=== PATIENT | female | born 1935 | race Caucasian/White ===

== ENCOUNTER → 2016-09-14 | Outpatient (CLI) | payer OTHER ==
[~2016-09-14] MED LIST: APRACLONIDINE 1% 0.1 ML OPH ONE; OPHTHALMIC IRRIG SOLUTION 120 ML ONE; PHENYLephrine 10% 5 ML OPH ONE; PROPARACAINE 0.5% 15 ML OPH ONE; TROPICAMIDE 1% 3 ML OPH ONE
== END | disposition home or self-care (01) ==
LOC: RAD 09:58
PROVIDERS: ATTEND Ophthalmology
DX: H26.9 Unspecified cataract (principal)
CPT/HCPCS: 66821; Z7610

== ENCOUNTER 2016-09-22 08:52 | Day surgery (SDC) | payer OTHER ==
[~2016-09-22] VITALS: Ht 157.5 cm; Wt 66.7 kg
[2016-09-22 09:52] VITALS: Ht 157.5 cm; Wt 66.7 kg
[2016-09-22] MEDS ORDERED: SITA100T8 PO (10:06)
[2016-09-22] MEDS ORDERED: AMLODIPINE (10:06)
[2016-09-22] MEDS ORDERED: LOSA25TA5 PO (10:06)
[2016-09-22] MEDS ORDERED: AMIT25TA9 PO (10:06)
[2016-09-22] MEDS ORDERED: OMEP20CA16 PO (10:06)
[2016-09-22] MEDS ORDERED: PENT400T2 PO (10:06)
[2016-09-22] MEDS ORDERED: PRAV10TA43 PO (10:06)
[2016-09-22] MEDS ORDERED: LEVO25TA53 PO (10:06)
[2016-09-22] MEDS ORDERED: FURO20TA3 PO (10:06)
[2016-09-22] MEDS ORDERED: PROPOFOL 20 ML ONE (10:18)
[2016-09-22 11:25] VITALS: BP 150/69; PULSE 81; RESP 18
--- NOTE | 2016-09-22 11:43 | GILP ---
DATE OF PROCEDURE: NAME OF PROCEDURE: Esophagogastroduodenoscopy and biopsy. SURGEON: Patricia Clarke MD PREOPERATIVE DIAGNOSES: 1. Abdominal pain. 2. Rectal bleeding. POSTOPERATIVE DIAGNOSES 1. Gastritis with erosions. 2. Gastric polyp on the antrum and biopsies were taken for histopathology. 3. Rectal prolapse and the colonoscopy was canceled. INDICATION FOR THE PROCEDURE: Ms. Jessica Rush is an 80-year-old female patient who had upper abdo attila pain, not responding to therapy. The patient also had history of rectal bleeding. The patien t was scheduled for endoscopy and colonoscopy for further evaluation. The procedures and possible complications are well explained to the patient, she understood and cons ented to the procedure. DESCRIPTION OF PROCEDURE: Under the influence of anesthesia, the gastroscope was carefully introduc ed into the esophagus and under direct vision, it was advanced to the stomach and through the pyloru s into the duodenal bulb and descending duodenum. FINDINGS: ESOPHAGUS: The mucosa was normal. STOMACH: The patient had gastritis with erosions. She also had a gastric polyp on the antrum and b iopsies were taken for histopathology. DUODENUM: Normal. FINDINGS: The patient was noted to have a rectal prolapse with bleeding, so the colonoscopy was can celed. She tolerated the procedure very well and there was no complication from the procedure. At the end of the procedures, she was awake with stable vital signs and she was discharged home to the care of her family. IMPRESSION: 1. Gastritis with erosions. 2. Gastric polyp on the antrum and biopsies were taken for histopathology. 3. Rectal prolapse. The colonoscopy was canceled. PLAN: 1. Omeprazole 40 mg p.o. q.a.m. 2. Await histopathology reports. 3. The patient needs evaluation by a colorectal surgeon for rectal prolapse. Dictated By: PATRICIA CROW/CHEY Conf#: [id number] DID#: [id number]
--- NOTE | 2016-09-22 20:51 | RADRPT ---
Vent Rate: 104 bpm RR Interval: 0 msec NM Interval: 280 msec QRS Duration: 120 msec QT Interval: 328 msec QTC Interval: 431 msec P-R-T [place]: 0 - -65 - 99 degrees Sinus tachycardia with 1st degree AV block Left axis deviation Left ventricular hypertrophy with QRS widening and repolarization abnormality Possible Lateral infarct , age undetermined Abnormal ECG Electronically Signed By: Bulmaro Alva [id number]
== END 2016-09-22 13:13 | disposition home or self-care (01) ==
LOC: GIL 08:52
PROVIDERS: ATTEND Internal Medicine Gastroenterology
DX: K29.30 Chronic superficial gastritis without bleeding (principal); K31.7 Polyp of stomach and duodenum; K62.3 Rectal prolapse; E11.9 Type 2 diabetes mellitus without complications; I10 Essential (primary) hypertension; E78.5 Hyperlipidemia, unspecified; E03.9 Hypothyroidism, unspecified; I50.9 Heart failure, unspecified
CPT/HCPCS: 43239; 82962; 88305; 88312; 93005; Z7610

== ENCOUNTER 2017-05-30 08:11 | Day surgery (SDC) | payer OTHER ==
[~2017-05-30] VITALS: Ht 157.5 cm; Wt 66.1 kg
[~2017-05-30 08:11] MED LIST changes: +AMIT25TA9 PO; +AMLODIPINE; -APRACLONIDINE 1% 0.1 ML OPH ONE; +FURO20TA3 PO; +LEVO25TA53 PO; +LOSA25TA5 PO; +OMEP20CA16 PO; -OPHTHALMIC IRRIG SOLUTION 120 ML ONE; +PENT400T2 PO; -PHENYLephrine 10% 5 ML OPH ONE; +PRAV10TA43 PO; -PROPARACAINE 0.5% 15 ML OPH ONE; +SITA100T8 PO; -TROPICAMIDE 1% 3 ML OPH ONE
[2017-05-30 08:53] VITALS: Ht 157.5 cm; Wt 66.1 kg
[2017-05-30 09:35] VITALS: BP 172/73; PULSE 73; RESP 18
[2017-05-30] MEDS ORDERED: PROPOFOL 20 ML ONE (10:02)
[2017-05-30] MEDS ORDERED: LIDOCAINE 100 MG SYRINGE ONE (10:02)
--- NOTE | 2017-05-30 10:35 | OPPN ---
Date/Time of Note Date/Time of Note DATE: 05/30/17 TIME: 10:34 Operative Report Preoperative Diagnosis Positive occult blood in stool Postoperative Diagnosis 2 small colon polyps were removed Internal hemorrhoids Operation/Procedure Performed Colonoscopy and biopsy Surgeon see signature line pediatric dental assistant None Anesthesia: MAC Estimated blood loss: none Transfusion Required none Specimen Colon polyps Grafts/Implants none Complications none JOSE A DEL VALLE MD May 30, 2017 10:35
--- NOTE | 2017-05-30 10:35 | OPPN ---
Date/Time of Note Date/Time of Note DATE: 05/30/17 TIME: 10:34 Operative Report Preoperative Diagnosis Positive occult blood in stool Postoperative Diagnosis 2 small colon polyps were removed Internal hemorrhoids Operation/Procedure Performed Colonoscopy and biopsy Surgeon see signature line server assistant None Anesthesia: MAC Estimated blood loss: none Transfusion Required none Specimen Colon polyps Grafts/Implants none Complications none JOSE A DEL VALLE MD May 30, 2017 10:35
--- NOTE | 2017-05-30 10:35 | OPPN ---
Date/Time of Note Date/Time of Note DATE: 05/30/17 TIME: 10:34 Operative Report Preoperative Diagnosis Positive occult blood in stool Postoperative Diagnosis 2 small colon polyps were removed Internal hemorrhoids Operation/Procedure Performed Colonoscopy and biopsy Surgeon see signature line product development assistant None Anesthesia: MAC Estimated blood loss: none Transfusion Required none Specimen Colon polyps Grafts/Implants none Complications none JOSE A DEL VALLE MD May 30, 2017 10:35
[2017-05-30 10:53] VITALS: BP 132/64; RESP 20
--- NOTE | 2017-05-30 11:27 | GILP ---
DATE OF PROCEDURE: 05/30/2017 NAME OF PROCEDURES: Colonoscopy and biopsy. SURGEON: Jose A Clarke MD PREOPERATIVE DIAGNOSIS: Positive occult blood in stool. POSTOPERATIVE DIAGNOSES 1. Colonoscopy all the way to the cecum. 2. Two small colon polyps were removed using the biopsy forceps. 3. Internal hemorrhoids. INDICATION FOR THE PROCEDURE: Ms. Jessica Plunkett is an 81-year-old female patient who was noted to have positive occult blood in stool. Patient was scheduled for colonoscopy for further evaluation. The procedure and possible complications were well explained to the patient. She understood and con sented to the procedure. DESCRIPTION OF PROCEDURE: Under the influence of anesthesia, the colonoscope was carefully introduc ed in the rectum and under direct vision, it was advanced all the way to the cecum. FINDINGS: The patient had 2 small colon polyps and they were removed using the biopsy forceps. She had internal hemorrhoids. She tolerated the procedure very well and there was no complication from the procedure. At the end of the procedures, she was awake with stable vital signs and she was discharged home to the care of her family. IMPRESSION: Please see postoperative diagnosis. PLAN: 1. Anusol-HC 2.5% cream at bedtime. 2. The patient will not need another screening colonoscopy because of the patient's age. Dictated By: JOSE A CROW/CHEY Conf#: [id number] DID#: [id number]
== END 2017-05-30 11:00 | disposition home or self-care (01) ==
LOC: GIL 08:11
PROVIDERS: ATTEND Internal Medicine Gastroenterology
DX: K92.1 Melena (principal); K63.5 Polyp of colon; K64.8 Other hemorrhoids; E11.9 Type 2 diabetes mellitus without complications; I10 Essential (primary) hypertension
CPT/HCPCS: 45380; 82962; 88305; J2001; Z7610